=== PATIENT | male | born 1965 | race African-American/Black ===

== ENCOUNTER 2019-01-16 11:03 | Emergency (ER) | payer OTHER ==
[~2019-01-16] VITALS: Ht 172.7 cm; Wt 88.1 kg
[~2019-01-16 11:03] MED LIST: IBUP-1542 PO
[2019-01-16 11:05] VITALS: BP 148/70; PULSE 87; RESP 16; Ht 172.7 cm; Wt 88.1 kg
--- NOTE | 2019-01-16 12:09 | ERD ---
ER Documentation Chief Complaint Chief Complaint lt ankle pain on and off x 6 months HPI The patient is a 53-year-old male, presenting to the ER because of chronic left ankle pain for more than 6 months after he stretches it accidentally. He has been unsteady on his feet a lot at work and the pain is more frequent. He denies any trauma. He fell 5 days ago and complains of minimal left hand pain, denies any other injury, denies headache, neck pain, chest pain, dyspnea, abdominal pain, vomiting, dysuria, diarrhea. He does not smoke nor drink Past medical/surgical history: None ROS All systems reviewed and are negative except as per history of present illness. Medications Home Meds Active Scripts Ibuprofen* (Motrin*) 600 Mg Tab, 600 MG PO Q6H PRN for PAIN AND OR ELEVATED TEMP, #30 TAB Prov:LARISA MAJOR MD 01/16/19 Reported Medications [None] No Conflict Check 03/04/13 Allergies Allergies: Uncoded Allergies: NONE (Allergy, Unknown, 01/16/19) PMhx/Soc Medical and Surgical Hx: pt denies Medical Hx, pt denies Surgical Hx Hx Alcohol Use: Yes (occasional) Hx Substance Use: No Hx Tobacco Use: No Smoking Status: Never smoker Physical Exam Vitals Vital Signs Date Temp Pulse Resp B/P (MAP) Pulse Ox O2 O2 Flow FiO2 Time Delivery Rate 01/16/19 97.6 87 16 148/70 99 11:05 (96) Physical Exam Const: No acute distress. Head: Atraumatic. Eyes: Normal Conjunctiva. ENT: Normal External Ears, Nose and Mouth. Neck: Full range of motion. No meningismus. Resp: Clear to auscultation bilaterally. Cardio: Regular rate and rhythm. Abd: Soft, non distended, normal bowel sounds, non tender. Skin: No petechiae or rashes. Back: No midline or flank tenderness. Ext: Left ankle is with minimal edema and vague tenderness, no calf te nderness. Left hand is with minimal vague tenderness, no laceration/ecchymosis Neur: Awake and alert. No focal deficit Psych: Normal Mood and Affect. Procedures/MDM MEDICAL MAKING DECISION: The patient is a 53-year-old male, presenting with chronic left ankle pain, is stable for present follow-up The differential diagnoses considered include but are not limited to sprain, strain, contusion, fracture, internal derangement Departure Diagnosis: Primary Impression: Ankle pain Condition: Good Comments He was discharged with Motrin I discussed the findings with the patient. I advised the patient to follow-up with ortho Dr Lin in about 1-2 days, sooner if needed and return if any concern, advised that he needs MRI for further eval. Disclaimer: Inadvertent spelling and grammatical errors are likely due to EHR/dictation software use and do not reflect on the overall quality of patient care. Also, please note that the electronic time recorded on this note does not necessarily reflect the actual time of the patient encounter. LARISA MAJOR MD Jan 16, 2019 12:09
== END 2019-01-16 13:04 | disposition home or self-care (01) ==
LOC: FTE 11:03
DX: M25.572 Pain in left ankle and joints of left foot (principal)
CPT/HCPCS: 99282